=== PATIENT | male | born 1995 | race Caucasian/White ===

== ENCOUNTER 2019-02-28 12:32 | Emergency (ER) | payer OTHER ==
--- NOTE | 2019-02-28 13:13 | EDM.PDOC ---
ED HPI GENERAL MEDICAL PROBLEM - General Chief Complaint: General Stated Complaint: thumb infection Time Seen by Provider: 02/28/19 13:00 Source of Information: Reports: Patient History Limitations: Reports: No Limitations - History of Present Illness INITIAL COMMENTS - FREE TEXT/NARRATIVE: This patient is a 23 year old male that was injured at work about 1 month ago with, had sutures and surgery with pins. Patient reports for 1 week having redness, swelling, drainage to right 1st thumb. Patient denies n, v, d, f. Reports foul swelling. Onset Date: 02/21/19 Duration: Week(s): (1) Location: Reports: Upper Extremity, Right Severity: Mild Associated Symptoms: Denies: Confusion, Diaphoresis, Fever/Chills, Headaches, Malaise, Nausea/Vomiting, Rash, Shortness of Breath, Weakness - Related Data Allergies Allergy/AdvReac Type Severity Reaction Status Date / Time No Known Allergies Allergy Verified 02/28/19 12:33 Home Meds: Home Meds . [No Known Home Meds] 02/28/19 [History] Past Medical History - Past Surgical History Musculoskeletal Surgical History: Reports: Other (See Below) Other Musculoskeletal Surgeries/Procedures:: surgery after trauma to right thumb Social & Family History - Family History Family Medical History: Noncontributory - Tobacco Use Smoking Status *Q: Never Smoker Second Hand Smoke Exposure: No - Recreational Drug Use Recreational Drug Use: No ED ROS GENERAL - Review of Systems Review Of Systems: See Below Constitutional: Reports: No Symptoms Respiratory: Reports: No Symptoms Cardiovascular: Reports: No Symptoms GI/Abdominal: Reports: No Symptoms Musculoskeletal: Reports: Other (right 1st digit pain, swelling, redness, drainage. ) Skin: Reports: Erythema (right 1st finger), Wound (right 2st finger repaired) Neurological: Reports: No Symptoms ED EXAM, GENERAL - Physical Exam Exam: See Below Exam Limited By: No Limitations General Appearance: Alert, WD/WN, No Apparent Distress Respiratory/Chest: No Respiratory Distress, Lungs Clear, Normal Breath Sounds, No Accessory Muscle Use Cardiovascular: Normal Peripheral Pulses, Regular Rate, Rhythm, No Edema, No Gallop, No Murmur, No Rub Peripheral Pulses: 2+: Radial (L), Radial (R) Extremities: Normal Range of Motion, Normal Capillary Refill, Increased Warmth ( left 1st finger thumb), Redness (left 1st digit thumb), Other (drainage left thumb at redness, swelling, seriousangeous. ). No: Limited Range of Motion Psychiatric: Normal Affect, Normal Mood Skin Exam: Warm, Dry, Erythema (right 1st thumb), Increased Warmth (right 1st thumb) Course - Vital Signs Last Recorded V/S: Last Vital Signs Temp 98.2 F 02/28/19 12:33 Pulse 83 02/28/19 12:33 Resp 18 02/28/19 12:33 BP 123/68 02/28/19 12:33 Pulse Ox 97 02/28/19 12:33 - Orders/Labs/Meds Orders: Active Orders 24 hr Category Date Time Status CULTURE WOUND [RM] Stat Lab 02/28/19 13:07 Ordered Departure - Departure Time of Disposition: 13:14 Disposition: Home, Self-Care 01 Condition: Good Clinical Impression: Wound, surgical, infected - Discharge Information *PRESCRIPTION DRUG MONITORING PROGRAM REVIEWED*: Not Applicable *COPY OF PRESCRIPTION DRUG MONITORING REPORT IN PATIENT [place]: Not Applicable Instructions: Wound Infection, [id number] Forms: ED Department Discharge Additional Instructions: Followup with your primary care provider Followup with your surgeon Return to the ER for worsening of condition or any emergent concerns Wash the would twice a day with soap and water, rinse, pat dry Bactrim DS 1 pill twice a day for 10 days #20 no refill Keflex 500mg 1 pill four times a day for 7 days #28 no refill - My Orders Last 24 Hours: My Active Orders 02/28/19 13:07 CULTURE WOUND [RM] Stat - Assessment/Plan Last 24 Hours: My Active Orders 02/28/19 13:07 CULTURE WOUND [RM] Stat Plan: PLEASE SEE RN NOTE FOR PFSH.
== END 2019-02-28 13:35 | disposition home or self-care (01) ==
LOC: CC.ED 12:32
DX: T81.49XA Infection following a procedure, other surgical site, initial encounter (principal)
CPT/HCPCS: 87070; 87077; 87186; 99283